=== PATIENT | female | born 1940 | race Caucasian/White ===

== ENCOUNTER 2025-10-04 13:35 | Outpatient (CLI) | payer MEDICARE ==
--- NOTE | 2025-10-04 15:39 | RADIOLOGY REPORT ---
PROCEDURE: MR MRI LUMBAR SPINE INDICATION: SPONDYLOSIS W/O MYELOPATHY OR RADICULOPATHY,LUMBAR REGION Exam Date: 10/04/2025 02:06 PM COMPARISON: None TECHNIQUE: MRI lumbar spine without intravenous contrast. FINDINGS: No fractures are identified about the lumbar spine. The conus terminates at L1- L2. L1-L2: There is disc desiccation with loss of disc height, greater on the left. There is a circumferential disc bulge with endplate hypertrophy, most prominent in the left foraminal region. There is bilateral facet and ligamentum flavum hypertrophy. No significant spinal canal stenosis. There is mild bilateral neural foraminal stenosis. L2-L3: There is disc desiccation with loss of disc height, greater on the right. There is a prominent Schmorl's node in the L2 inferior endplate. There is a circumferential disc bulge with endplate hypertrophy, most prominent in the foraminal regions. There is bilateral facet and ligamentum flavum hypertrophy. No significant spinal canal stenosis. There is mild bilateral neural foraminal stenosis. L3-L4: There is grade 1 anterolisthesis L3 on L4 measuring 6 mm AP, without evidence of spondylolysis. There is disc desiccation with near-complete loss of disc height. Probable vacuum phenomenon in the disc. There are Modic type 1 and 2 changes in the adjacent endplates, greater on the right. There is a circumferential disc bulge with endplate hypertrophy, most prominent in the right foraminal region. There is bilateral facet and ligamentum flavum hypertrophy. The AP dimension of the spinal canal is narrowed to 8 mm, with complete effacement of the CSF signal. There is partial effacement of the l ateral recesses. There is moderate to severe right and moderate left neural foraminal stenosis. L4-L5: There is disc desiccation with near-complete loss of disc height. Probable vacuum phenomenon in the disc. There are Modic type 1 and 2 changes in the adjacent endplates. There is a circumferential disc bulge with endplate hypertrophy, most prominent in the right foraminal region. There is bilateral facet and ligamentum flavum hypertrophy. There is prominence of the posterior epidural fat. The AP dimension of the spinal canal measures 6.3 mm. There is partial effacement of the lateral recesses. There is moderate to severe right and moderate left neural foraminal stenosis. L5-S1: There is a mild circumferential disc bulge. There is bilateral facet and ligamentum flavum hypertrophy. The AP dimension of the spinal canal measures 6.8 mm. There is mild fright and moderate left neural foraminal stenosis. IMPRESSION: 1. No fracture of the lumbar spine. 2. Advanced lumbar degenerative disc disease and facet arthropathy with moderate to severe spinal canal stenosis at L3-L4 and moderate spinal canal stenosis at L4-L5. 3. Significant neural foraminal stenosis at L3-L4 bilaterally, L4-L5 bilaterally, and L5-S1 on the left. These findings may correspond to lower extremity radicular symptoms in the bilateral L3, bilateral L4, and left L5 nerve root distributions. 4. Grade 1 anterolisthesis L3 on L4 without evidence of spondylolysis.
== END 2025-10-04 23:59 | disposition home or self-care (01) ==
LOC: MRI02 13:35
PROVIDERS: ATTEND Family Medicine Sports Medicine
DX: M51.369 Other intervertebral disc degeneration, lumbar region without mention of lumbar back pain or lower extremity pain (principal); M54.50 Low back pain, unspecified; M47.816 Spondylosis without myelopathy or radiculopathy, lumbar region; M47.896 Other spondylosis, lumbar region; M54.16 Radiculopathy, lumbar region; M77.9 Enthesopathy, unspecified; M21.061 Valgus deformity, not elsewhere classified, right knee; M43.16 Spondylolisthesis, lumbar region; M48.061 Spinal stenosis, lumbar region without neurogenic claudication; M48.07 Spinal stenosis, lumbosacral region
CPT/HCPCS: 72148